=== PATIENT | male | born 1975 ===

== ENCOUNTER 2017-10-30 08:30 | Day surgery (SDC) | payer OTHER | END 2017-10-30 16:03 | disposition home or self-care, planned readmission (81) | LOC: AMB-ENDOS 08:30 | DX: K92.1 Melena (principal); Z12.11 Encounter for screening for malignant neoplasm of colon ==

== ENCOUNTER → 2020-02-15 | Outpatient (CLI) | payer OTHER | END | disposition home or self-care (01) | LOC: OFIC 805 11:00 | PROVIDERS: ATTEND Otolaryngology | DX: S09.8XXA Other specified injuries of head, initial encounter (principal); R04.0 Epistaxis; Y99.8 Other external cause status ==

== ENCOUNTER → 2020-03-20 | Outpatient (CLI) | payer OTHER | END | disposition home or self-care (01) | LOC: OFIC 805 11:01 | PROVIDERS: ATTEND Otolaryngology | DX: S09.8XXA Other specified injuries of head, initial encounter (principal); J30.89 Other allergic rhinitis ==